=== PATIENT | male | born 1975 ===

== ENCOUNTER 2020-10-03 23:22 | Emergency (ER) | payer SELFPAY ==
[~2020-10-03] VITALS: Ht 177.8 cm; Wt 122.5 kg
[2020-10-03] MEDS ORDERED: CALCIUM CHLOR(10%) 100MG/ML 10ML SYRINGE IV ONE (23:23)
[2020-10-03] MEDS ORDERED: EPINEPHrine HCL 1 MG/10 ML SYRG IV ONE (23:23)
[2020-10-03] MEDS ORDERED: SODIUM BICARBONATE 8.4% INJ 50ML SYRINGE IV ONE (23:23)
[2020-10-03 23:37] VITALS: BP 110/59
== END 2020-10-04 06:10 | disposition home or self-care (01) ==
LOC: ER 23:22
DX: I46.9 Cardiac arrest, cause unspecified (principal)
CPT/HCPCS: 31500; 92950; 99291